=== PATIENT | male | born 1960 | race Caucasian/White ===

== ENCOUNTER 2024-02-09 06:21 | Observation (INO) ==
--- NOTE | 2024-01-03 12:21 | PAT Medication Instructions ---
Medication Instructions Date of Service January 03, 2024 Home Medications ibuprofen 200 mg tablet 200 mg PO Q6H PRN ASK your surgeon for instructions ibuprofen 200 mg tablet 200 mg PO Q6H PRN Other Notes NOTHING TO EAT OR DRINK AFTER MIDNIGHT. If you have any questions please call us at [phone] or [phone] or [phone] or [phone]
--- NOTE | 2024-01-14 11:44 | Anesthesiology Consultation ---
Date of Service January 14, 2024 Assessment & Plan (1) Encounter for pre-operative examination: Chart Review Chart Review: Acceptable Risk for Surgery (pending Factor V level results and PCP clearance 01/21/24) and Patient seen in Pre Admission Testing - Awaiting Factor V level (due to FH of blood clots) - Awaiting PCP clearance 01/21/24 (Dr. Boyer- [facility]) Patient prefers to sit up post op- does not like to lay flat on back when waking up - Patient is NOT an ideal OPJ candidate (currently 23 hour obs) Per [facility] appt on 01/14/24, no recent illness/disease exposures, illness related symptoms, or recent illness/disease positive tests. Will leave to surgeon's discretion if preop Covid testing needed Teaching & Discussion Pre-Anesthesia Teaching/Discussion Notes: Instructed NPO after midnight before surgery,except medications with 15 cc of water. Medication instructions provided according to the [facility] guidelines. History Surgery Operation Date: 02/09/24 07:00 Proposed Procedures p Right Total Hip Arthroplasty - Sammy Lara MD Height/Weight Height: 6 ft Weight: 147.418 kg Allergies Allergy/AdvReac Type Severity Reaction Status Date / Time No Known Allergies Allergy Verified 12/30/23 11:52 Medications Home Medications Medication Instructions Recorded Confirmed Last Taken ibuprofen 200 mg tablet 200 mg PO Q6H PRN Pain 12/30/23 12/30/23 Unknown Past Medical History Medical History (Updated 01/17/24 @ 09:17 by Vangie Chambers PA-C) Family history of blood clots No personal history of blood clots Surgeon ordered Factor V testing as part of preop testing at [facility] appt 01/14/24 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 emergency room. resolved. History of hypertension (2018) diet controlled hx of taking blood pressure medication for about 5 months, no longer needed. History of kidney stones no surgical intervention - "passed on own" no recent issues Exercise / Class Metabolic Activity III < 4 Walking/Shop/Light housework (no chest pain or SOB with flat surface, short distance ambulation- uses cane for longer distance ambulation ) Past Family History Family History Other No family history of adverse response to anesthesia Past Surgical History Surgical History History of cholecystectomy History of esophagogastroduodenoscopy (EGD) (1993) Hx of palate surgery (2011) removal of hard palate cancer removal Status post gastric banding (1993) Past Anesthesia History No Hx of Anesthesia Complications and No Family Hx of Anesthesia Complications History of PONV No Hx of PONV and No Hx of Motion Sickness Social History Smoking Status: Never smoker Do You Dip or Chew Tobacco: No Hx Alcohol Use: No Hx Substance Use: No substance use type: does not use Review of Systems - Unknown snoring history per patient Patient denies chest pain, shortness of breath, dyspnea on exertion, reflux, cough, wheezing, palpitations. No hx of seizures, stroke, [place]. No hx of blood clots or blood transfusions Physical Exam Vital Signs VITALS BP 144/83 P 64 TEMP 98.2 SP02 97% RESP 16 Constitutional no acute distress ENMT Mouth: no TMJ clicking Thyromental Distance: > or= 3.5 Finger Breadths (3.5) Mallampati Class: I Molars missing Neck + limited neck extension (mild) Respiratory normal respiratory effort; no respiratory distress Auscultation: lungs clear to auscultation bilaterally; no wheezes Cardiovascular Rate/Rhythm: regular rate and regular rhythm Heart Sounds: no murmur Vessels: no carotid bruit Musculoskeletal Spine: no pain with cervical ROM Extremities: extremities normal to inspection Psychiatric Orientation: alert Lab Results Anesthesia Preop Results Results Anesthesia Widget: WBC 4.59 K/ul (4.8-10.8) L 01/14/24 Hgb 14.5 g/dl (14.0-18.0) 01/14/24 Hct 44.5 % (42.0-52.0) 01/14/24 Plt 186 K/uL (130-400) 01/14/24 Na 139 mmol/L (136-145) 01/14/24 K 4.5 mmol/L (3.5-5.1) 01/14/24 Cl 107 mmol/L (98-107) 01/14/24 CO2 26 mmol/L (21-32) 01/14/24 BUN 15 mg/dl (6-23) 01/14/24 Creat 0.75 mg/dl (0.6-1.4) 01/14/24 Glucose Level 104 mg/dl (70-99(Fasting)) H 01/14/24 PT 10.9 Seconds (9.0-12.0) 01/14/24 PTT 28 Seconds (21-31) 01/14/24 INR 1.0 (0.9-1.1) 01/14/24 Urine Color Dark Yellow 01/14/24 Urine Appearance Clear (Clear) 01/14/24 Urine pH 5.5 (4.5-7.5) 01/14/24 Urine Specific [place] 1.022 (1.000-1.030) 01/14/24 Urine Protein Negative (Negative) 01/14/24 Urine Glucose (UA) Negative (Negative) 01/14/24 Urine Ketones Trace (Negative) H 01/14/24 Urine Blood Negative (Negative) 01/14/24 Urine Nitrite Negative (Negative) 01/14/24 Urine Bilirubin Negative (Negative) 01/14/24 Urine Urobilinogen Negative (Negative) 01/14/24 Urine Leukocyte Esterase Negative (Negative) 01/14/24 Blood Type A Positive 01/14/24 Antibody Screen NEGATIVE 01/14/24 Testing Electrocardiogram Date: 01/14/24 SB at 58bpm Left axis deviation RBBB Chest X-Ray Date: 01/14/24 Findings: + NAD Echocardiogram Date: 11/22/23 EF: 60% LV Function: normal Other Findings: + diastolic dysfunction Valvular Disease: + no significant valvular disease
[2024-02-09] MEDS ORDERED: BUPIVACAINE 0.5 % 5 MG/1 ML PF 10ML VIAL ONE (06:23)
--- NOTE | 2024-02-09 06:25 | History & Physical Bridge Note ---
Date of Service February 09, 2024 History & Physical Bridge Note I have examined the patient, reviewed the History & Physical and in the interval since the performance of the History & Physical I have noted the following changes of clinical significance:consent and site verified. no changes noted
[2024-02-09] MEDS: LR 500ML BOLUS, THEN 15ML/HR IV SCH (07:08)
[2024-02-09] MEDS: LR 60ML/HR IV SCH (07:08)
[2024-02-09] MEDS ORDERED: ONDANSETRON INJ 2 MG/ML 2 ML VIAL ONE (07:14)
[2024-02-09] MEDS ORDERED: LIDOCAINE 2% 2 ML VIAL/AMP(20MG/ML) INFIL ONE (07:14)
[2024-02-09] MEDS ORDERED: MIDAZOLAM HCL 1 MG/ML 2ML VIAL ONE ×2 (07:14→08:59)
[2024-02-09] MEDS ORDERED: PROPOFOL IV EMULSION 10 MG/ML 20 ML VIAL IV ONE ×2 (07:14→07:15)
[2024-02-09] MEDS ORDERED: DEXAMETHASONE SOD INJ 4 MG/ML VIAL ONE (07:14)
[2024-02-09] MEDS ORDERED: fentaNYL citrate PF 100 MCG/2 ML VIAL ONE ×2 (07:15→09:43)
[2024-02-09] MEDS ORDERED: ATROPINE SULFATE 0.1 MG/ML 10ML SYR IV PRN (07:55)
[2024-02-09] MEDS ORDERED: ePHEDrine sulfate 50 MG/ML AMP IV PRN (07:55)
[2024-02-09] MEDS ORDERED: ONDANSETRON INJ 2 MG/ML 2 ML VIAL IV PRN ×2 (07:55→12:10)
[2024-02-09] MEDS ORDERED: fentaNYL citrate PF 100 MCG/2 ML VIAL IV PRN (07:55)
[2024-02-09] MEDS: NYSTATIN POWDER 15GM BTL EXT STA (08:08)
[2024-02-09] MEDS: TRANEXAMIC ACID 1,000 MG **IV Pre-op IV SCH (08:33)
[2024-02-09] MEDS: ceFAZolin 3000MG 3,000 MG/72.5 ML BAG IV SCH (08:58)
[2024-02-09] MEDS ORDERED: KETAMINE HCL 10MG/ML SYR ONE (09:12)
[2024-02-09] MEDS: ORTHO JOINT ANESTHETIC ONE (09:38)
--- OUTSIDE RECORDS SUMMARY | 2024-02-09 10:02 | External Medical Summary | Continuity of Care Document ---
Author Name Unknown Organization [facility] [address] [id number] Address [address] [place] [id number] Care Team Providers Care Job Printer Name Role Phone Ramirez Boyerren Raoul Primary Care Physician [phone] Encounter [facility] [id number] Date(s): 01/14/24 - 01/14/24 [facility] [address] [id number] [facility] Medicine [address] [place] [id number] Encounter Diagnosis Degenerative joint disease of right hip(Discharge Diagnosis) - 01/14/24 Discharge Disposition: Home or Self Care Attending Physician: TAMRA Duran, Yoel Jefferson Referring Physician: MD Marco, Sammy Arguello Allergies, Adverse Reactions, Alerts No Known Allergies Medications No Known Medications Mental Status 01/14/24 Barriers to Learning one year None evide nt Mandatory Health Literacy Documentation Yes Health Literacy Communication Barriers N ever Primary Language Sinhala Problem List Condition Confirmation Course Effective Dates Status H ealth Status Informant 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 Confirmed Active Diagnosis Diagnosis Type Effective Dates Health Status Clinical Service Informant Degenerative joint disease of right hip Discharge Diagnosis 01/14/24 Vital Signs Most recent to oldest [Reference Range]: 1 Height 179 cm (01/14/24 10:07 AM) Patient Weight 145 kg (01/14/24 10:07 AM) Body Mass Index 45.25 kg/m2 (01/14/24 10:07 AM) Temperature [36.5-37.9 DegC] 36.2 DegC *LOW* (01/14/24 10:07 AM) Heart Rate 68 bpm (01/14/24 10:07 AM) Blood Pressure 150/80mmHg (01/14/24 10:07 AM) Cuff Pulse Pressure 70 mmHg (01/14/24 10:07 AM) Social History Social History Type Response Smoking Status Never smoked cigaret maribel Sex Male Patient Care team information Care Team Personnel Name: MD Boyer Darren M Position: Referring Member Role: Primary Care Provider Address: Address: [address] [place] [id number]
[2024-02-09] MEDS: TRANEXAMIC ACID 1,000 MG **IV Intra-op IV SCH (10:15)
[2024-02-09] MEDS: ROPIVACAINE 0.5% HCL/PF 246 MG, Ketorolac (*for OR use only*) 30 MG, EPINEPHrine 30MG/3... INFIL SCH (10:25)
--- NOTE | 2024-02-09 10:33 | Post Operative Brief Note ---
Immediate Post Op Note Date of Surgery February 09, 2024 Pre & Post Diagnosis Operation Date: 02/09/24 08:50 Pre-Op Diagnosis: Right Hip Osteoarthritis Post-Op Diagnosis: Right Hip Osteoarthritis I identified the patient and participated in the time-out.: Yes Procedure Operation Date: 02/09/24 08:50 Actual Procedures p Right Total Hip Arthroplasty(Right) - Sammy Lara MD Surgeon Sammy Lara MD Starch Crab ROSARIO/subjective Estimated Blood Loss 200 Findings Consistent with Post-Op Diagnosis Severe osteoarthritis with acetabular overhang marked femoral head deformity Fluids See anesthesia report Complications None
--- NOTE | 2024-02-09 10:37 | Operative Report ---
Post Operative Report Pre & Post Diagnosis Operation Date: 02/09/24 08:50 Pre-Op Diagnosis: Right Hip Osteoarthritis Post-Op Diagnosis: Right Hip Osteoarthritis I identified the patient and participated in the time-out.: Yes Procedure Operation Date: 02/09/24 08:50 Actual Procedures p Right Total Hip Arthroplasty(Right) - Sammy Lara MD Surgeon Sammy Lara MD Logistics Manager ROSARIO/subjective Estimated Blood Loss 200 Findings Consistent with Post-Op Diagnosis Severe osteoarthritis with marked acetabular osteophytes femoral neck deformity with osteophytes Fluids See anesthesia Specimens Bone pathology Drains None Complications None Indications Severe pain end-stage disease by x-ray and physical exam high BMI Description of Procedure After the patient was appropriate notified site verified consent verified antibiotics confirmed as being given the patient was placed in the left lateral decubitus position with extra padding. Right lower extremity was then prepped and draped use routine fashion. An appropriate exposure was made based on the size. Appropriate retraction placed. Care taken to protect the sciatic nerve. The hip was quite stiff. Required a lot of exposure. Care was taken not to put any retractors on the sciatic nerve and to knowledge none was. Once the short external rotators were identified they were released and used to protect the sciatic nerve the capsule was then teed. There were huge osteophytes at the posterior acetabulum which were excised. The hip was then dislocated and the femoral neck resected leaving about a centimeter from the lesser tuberosity. As Exposure was then obtained it was large fragments in the joint these were removed. Serial reaming was carried up to a size 56 and 56 acetabular shell sector cup impacted into position with excellent purchase and secured with additional 6.5 x 25 screw with excellent purchase. The dome cart was then placed and then the [place] dual mobility 56/49 liner was seated. Marked osteophytes need to be removed in order to do this. Once this was done the femur was flexed and internally rotated in the proximal femur. With a box loader canal finder lateralizing rasp and serial broaching up to a size 7 reduction with the +5 was slightly short A5 was better. All trial implants were then removed and the permanent stem's contacted and position the femoral head and liner impacted. The hip was stable in all planes and the leg lengths were excellent. The wound was then copiously irrigated the remnants of the capsule were closed as best as possible they were quite contracted and deformed from all the osteophytes the short external rotators were then repaired back to the tuberosity #2 Vicryl was used for this . The deep fascia was then closed with a #2 Vicryl the deep fat with #2 Vicryl the superficial subcutaneous tissue with 2-0 Vicryl skin sindi and retention sutures with 0 Prolene. Wound was then appropriately dressed the patient transferred recovery in satisfactory He tolerated the procedure well. Of note this case was difficult based on overall patient's size and high BMI. This required multiple assistance. Modifier should be used for this. Summary of implants size 56 cup acetabular shell sector DePuy size 25 x 6.5 screw DePuy dome cover DePuy 56/49 double bili liner DePuy 7 standard collared stem Actis DePuy. 49/28 bipolar head DePuy and 28+8.5 ceramic head DePuy. EBL was 200 cc or less crystalloid per anesthesia pathology pending on bone x-rays pending. Family contacted. I attest to the content of the Intraoperative Record and any orders documented therein. Any exceptions are noted below.
--- NOTE | 2024-02-09 10:41 | Orthopedic Progress Note ---
Date of Service February 09, 2024 Orthopedic Progress Note Postop patient tolerated total replacement well. He is awake. He answers questions properly. Spinal is in place cannot move any extremities yet. Denies any chest pain shortness of breath fever chills nausea vomiting headache. Vital signs are stable. He is afebrile. Wound dressing clean dry and intact. Leg lengths are relatively equal. X-ray pending. Family contacted.
--- NOTE | 2024-02-09 10:42 | Discharge Summary ---
Date of Service February 10, 2024 Admission HPI Per Admitting Provider Severe osteoarthritis right and left hip right more severe Principal Diagnosis Severe osteoarthritis right hip with deformity Discharge Data Allergies Allergy/AdvReac Type Severity Reaction Status Date / Time No Known Allergies Allergy Verified 02/09/24 06:50 Vaccinations None Consultations None Procedures Performed Operation Date: 02/09/24 08:50 Actual Procedures p Right Total Hip Arthroplasty(Right) - Sammy Lara MD Ordered Studies X-ray bone pathology Hospital Course (1) Status post hip replacement: Care management plan for total hip replacement high BMI Total Time Total Time Spent Total Time Spent (In Minutes): 5 Discharge Plan Discharge Items Reason For Visit: Right Hip Osteoarthritis Discharge Diagnosis: Same Condition on Discharge: Good Activity: Per Instructions section Lifting: Wait until after follow-up appointment Bathing: Keep incision dry Sexual Activity: Wait until after follow-up appointment Exercise/Sports: Wait until after follow-up appointment Weightbearing Comment: As tolerated with walker or crutches Call non-emergency contact if: your temperature is above 101.5, your wound has increased redness, your wound has increased drainage and your wound pain has increased Follow-up/Referrals: Chidi Boyer MD [Primary Care Provider] - Add Attending Provider Instructions: DIET: * Resume previous diet. MEDICATIONS: * Please take your prescriptions as instructed at your pre-op appointment and/or see medication discharge instructions listed above. * If concerns develop, call your physician's office at . SPECIAL CARE INSTRUCTIONS: * Ice/Elevate as instructed. * Keep dressing clean, dry, intact. * Your surgical extremity may be discolored due to prepping agents used on the skin. A bluish-green tint is a normal variant and should not cause alarm. Call your doctor at [phone] if: * Temperature above 101 degrees * Pain not relieved by pain medicine ordered * There is increased drainage or redness from any incision * You have any unanswered questions, problems or concerns. FOLLOW UP VISIT: * If not already scheduled, please call the office at to schedule a follow-up appointment. Pending Studies at Discharge: Yes (Lung pathology) Stand-Alone Forms: My [facility] Medications and DC Order Prescriptions: No Action ibuprofen 200 mg Tablet 200 mg PO Q6H PRN (Reason: Pain) Admission Data Admit Date/Time: 02/09/24 10:48 Attending Provider: Sammy Lara Admit Provider: Sammy Lraa Primary Care Provider: Chidi Boyer Other Providers: [facility]
--- NOTE | 2024-02-09 10:44 | Operative Report ---
Post Operative Report Pre & Post Diagnosis Operation Date: 02/09/24 08:50 Pre-Op Diagnosis: Right Hip Osteoarthritis Post-Op Diagnosis: Right Hip Osteoarthritis I identified the patient and participated in the time-out.: Yes Procedure Operation Date: 02/09/24 08:50 Actual Procedures p Right Total Hip Arthroplasty(Right) - Sammy Lara MD Surgeon CONNOR Lara MD Supervisor Shipping Room ROSARIO/Renee PAC Estimated Blood Loss 200 Findings Consistent with Post-Op Diagnosis see operative report Specimens see operative report Drains none Complications none Disposition Accompanied Patient To Recovery: Yes Indications This 64 year old male presented to the office with complaints of persisting right hip pain. He had tried conservative care measures without improvement. He elected to proceed with surgical intervention after being educated about potential risks and outcomes. Preoperative imaging was obtained. Description of Procedure The patient was administered a spinal anesthetic and then taken to the operating room where he was given sedation. He was prepped and draped in the usual sterile fashion. Please see Dr. Lara's operative report for specifics of the procedure. I was present for the entire case from initial patient positioning through final wound closure. Assistance was provided in tissue retraction, hemostasis, trial implant placement, final implant placement, and final wound closure. The patient was taken to the recovery room in satisfactory condition. I attest to the content of the Intraoperative Record and any orders documented therein. Any exceptions are noted below.
--- NOTE | 2024-02-09 10:51 | Operative Report ---
Post Operative Report Pre & Post Diagnosis Operation Date: 02/09/24 08:50 Pre-Op Diagnosis: Right Hip Osteoarthritis Post-Op Diagnosis: Right Hip Osteoarthritis I identified the patient and participated in the time-out.: Yes Procedure Operation Date: 02/09/24 08:50 Actual Procedures p Right Total Hip Arthroplasty(Right) - Sammy Lara MD Surgeon Sammy Lara MD Cloth Examiner Hand ROSARIO/Renee PAC Estimated Blood Loss 200 Findings Consistent with Post-Op Diagnosis Same as postoperative diagnosis. Specimens The resected femoral head and portions of the femoral neck. Description of Procedure Please see detailed operative note. I attest to the content of the Intraoperative Record and any orders documented therein. Any exceptions are noted below.
--- NOTE | 2024-02-09 12:01 | Anesthesiology Progress Note ---
Date of Service February 09, 2024 Anesthesia Post Procedure Vital Signs Vital Signs: Temp Pulse Pulse Resp BP Pulse Ox O2 Del Method 02/09/24 11:53 98.1 F 52 L 18 156/76 H 100 Room Air 02/09/24 11:30 98.1 F 56 L 12 161/84 H 99 Room Air 02/09/24 11:20 52 L 18 147/78 H 100 Room Air 02/09/24 11:10 56 L 16 163/78 H 99 Room Air 02/09/24 11:00 55 L 20 150/93 H 99 Room Air 02/09/24 10:50 60 18 100 Oxymask 02/09/24 10:42 97.5 F L 60 16 163/71 H 100 Oxymask 02/09/24 06:56 98.6 F 69 20 161/80 H 96 Room Air O2 Flow Rate 02/09/24 11:53 02/09/24 11:30 02/09/24 11:20 02/09/24 11:10 02/09/24 11:00 02/09/24 10:50 6 02/09/24 10:42 6 02/09/24 06:56 Transfer of Care Handoff Completed per policy Notes Mental Status: alert / awake / arousable and participated in evaluation Patient Amnestic to Procedure: Yes Nausea / Vomiting: adequately controlled Pain: adequately controlled Airway Patency, RR, SpO2: stable & adequate BP & HR: stable & adequate Hydration State: stable & adequate Neuraxial Anesthesia: was administered and sensory block is resolving Anesthetic Complications: no major complications apparent and Pt Satisfied with anesthetic care
[2024-02-09] MEDS ORDERED: diphenhydrAMINE 50 MG/ML VIAL IV PRN (12:10)
[2024-02-09] MEDS ORDERED: ALUMINUM/MAGNESIUM SUSP 30 ML UDC PO PRN (12:10)
[2024-02-09] MEDS ORDERED: oxyCODONE HCL IR 5 MG TAB (IMMEDIATE RELEASE) PO PRN (12:10)
[2024-02-09] MEDS ORDERED: MAGNESIUM HYDROXIDE SUSP 30 ML UDC PO PRN (12:10)
[2024-02-09] MEDS ORDERED: TAMSULOSIN HCL 0.4 MG CAP PO PRN (12:10)
[2024-02-09] MEDS ORDERED: METOCLOPRAMIDE HCL INJ 5 MG/ML 2 ML VIAL IV PRN (12:10)
[2024-02-09] MEDS ORDERED: VANCOMYCIN CONSULT ACTIVE PRN (12:10)
[2024-02-09] MEDS ORDERED: NALOXONE HCL 0.4 MG/1 ML VIAL/CARP IV PRN (12:10)
[2024-02-09] MEDS ORDERED: HYDROmorphone INJ 0.5 MG/0.5 ML SYR IV PRN (12:10)
[2024-02-09] MEDS ORDERED: bisacodyL 10 MG SUPP PR PRN (12:10)
[2024-02-09] MEDS: NEOMYCIN/POLYMYX/BACITR OINT 15 GM TUBE ONE (12:12)
[2024-02-09] MEDS: SODIUM CHLORIDE 0.9% 1,000 ML IV SCH (12:16)
--- NOTE | 2024-02-09 12:26 | XRay Report ---
XR pelvis 1-2V routine CLINICAL HISTORY: Status post right hip arthroplasty. COMPARISON: Right hip CT September 28, 2023. Right hip radiographs August 30, 2023. FINDINGS: Alignment of the total right hip arthroplasty is anatomic. There is no periprosthetic frac ture or unexpected radiopaque foreign body. There are skin sindi. IMPRESSION: Expected findings following total right hip arthroplasty. ACT 112: Negative or not required by law. Electronically signed by: Armand Virgen M.D. 02/09/2024 12:25 PM
[2024-02-09] MEDS: KETOROLAC 30 MG/ML VIAL IV SCH (12:37)
[2024-02-09] MEDS: ACETAMINOPHEN 500 MG TAB PO SCH (14:02)
--- NOTE | 2024-02-09 14:19 | Orthopedic Progress Note ---
Date of Service February 09, 2024 Assessment & Plan Admission and Anticipated Discharge Date Admission Date: February 09, 2024 Orthopedic Progress Note Patient resting comfortably in bed. Denies chest pain shortness of breath fever chills nausea vomiting or headache. Vital signs are stable he is afebrile. Neurovascular check reveals a spinal be wearing off. Has active toe and ankle plantarflexion and dorsiflexion. Still has some tingling in his feet. Not able to get up at this point. Wound dressing clean dry and intact. Assessment postop total hip replacement several hours ago doing well continue with care pathway get him out of bed as soon as it is spinal wears off completely. He is eating and drinking well so we will saline lock his IV.
[2024-02-09] MEDS: FERROUS GLUCONATE 324 MG TAB PO SCH (17:06)
[2024-02-09] MEDS: ASCORBIC ACID 500 MG TAB PO SCH (17:06)
[2024-02-09] MEDS: ceFAZolin 2000MG 2,000 MG/15 ML SYR IV SCH (17:38)
[2024-02-09] MEDS: VANCOMYCIN HCL 2,000 MG in SODIUM CHLORIDE 0.9% 500 ML IV ONE (17:52)
[2024-02-09] MEDS: DOCUSATE SODIUM 100 MG CAP PO SCH (20:47)
[2024-02-09] MEDS: SENNA 8.6 MG TAB PO SCH (20:48)
--- NOTE | 2024-02-10 06:33 | Orthopedic Progress Note ---
Date of Service February 10, 2024 Assessment & Plan Admission and Anticipated Discharge Date Admission Date: February 09, 2024 Orthopedic Progress Note Postop day #1 status post right total replacement. Patient is doing well denies chest pain shortness of breath fever chills nausea vomiting headache. Vital signs are stable he is afebrile. Neurovascular check femoral sciatic nerve is good. Wound dressing clean dry and intact. Assessment overall doing well a.m. labs pending. Plan is for discharge with services. He is being evaluated for potential other types of facilities. This will be limited by insurance. Weight finalize plan for case management. Start Eliquis today. Dressing changed by PA later today
[2024-02-10 07:57] LABS: Basophils # (auto) 0.02 K/uL (0.00-0.20); Basophils % (auto) 0.3 %; Eosinophils # (auto) 0.07 K/uL (0.00-0.50); Hematocrit (blood only) 44.2 % (42.0-52.0); Hemoglobin 14.4 g/dl (14.0-18.0); Immature Granulocytes # (auto) 0.03 K/uL (0.01-0.20); Immature Granulocytes % (auto) 0.4 %; Lymphocytes # (auto) 0.57 K/uL (1.20-3.40); Lymphocytes % (auto) 8.2 %; Mean Corpuscular Hemoglobin 29.6 pg (25.0-34.0); Mean Corpuscular Hgb Conc 32.6 g/dL (32.0-36.0); Mean Corpuscular Volume 90.8 fL (80.0-100.0); Monocytes # (auto) 0.61 K/uL (0.11-0.59); Monocytes % (auto) 8.7 %; Neutrophils # (auto) 5.69 K/uL (1.40-6.50); Neutrophils % (auto) 81.4 %; Platelet Count 144 K/uL (130-400); RDW Coefficient of Variation 14.2 % (11.5-14.5); RDW Standard Deviation 47.5 fL (36.4-46.3); Red Blood Count 4.87 M/uL (4.70-6.10); White Blood Count 6.99 K/ul (4.8-10.8)
[2024-02-10] MEDS: dexAMETHasone 10 MG in SYRINGE 0 ML IV SCH (08:25)
[2024-02-10] MEDS: MULTIVITAMIN TAB PO SCH (08:31)
[2024-02-10 08:33] LABS: BUN Creatinine Ratio 28.6 (10-20); Calcium 8.2 mg/dl (8.6-10.3); Creatinine Clr Calc Pharmacy 155.5 ml/min; Est GFR (African American) 115.6 ml/min; Est GFR (Non-African American) 99.7 ml/min
--- NOTE | 2024-02-10 09:11 | Orthopedic Progress Note ---
Date of Service February 10, 2024 Assessment & Plan (1) Status post hip replacement: Plan: The patient was educated regarding today's findings. Conservative care measures were discussed. A new pressure dressing was applied by me, using gauze, ABDs, and Medipore tape. He should keep this in place through the weekend. I will see him in the office on Wednesday at 11 AM for dressing change and wound evaluation. Written discharge instructions were provided. His Eliquis was started this morning. Continue twice daily for 4 weeks to prevent clots. Continue using his walker for ambulation. Ice the hip frequently to reduce pain and swelling. Awaiting insurance authorization for transfer to [facility] for rehab. Admission and Anticipated Discharge Date Admission Date: February 09, 2024 Subjective This 64-year-old male is seen today in his room. He is 1 day status post right total hip arthroplasty. The patient states he did fine overnight. He was able to ambulate to the bathroom. He is currently eating breakfast. He denies any chest pain, shortness of breath, nausea, vomiting, or abdominal pain. He does have some hip pain but states it is tolerable. He is hoping to be discharged to [facility] today. He states he has no one available to stay with him and his plans for returning home fell through with relatives. Review of Systems Review of Systems: Unchanged from yesterday. Physical Exam Physical Exam: General: Well-developed, well-nourished, large middle-aged male, in no acute distress. Sitting in bed. Alert and oriented. Skin: Warm and dry with good turgor. No rashes. He has venous stasis changes on his lower extremities. He has a postsurgical dressing in place on the right hip. Upon removal, there is a moderate amount of bloody drainage on the inner dressings. No bleeding through the outer dressings. His surgical wound is well-approximated. [place] and retention sutures are in place. He has some minor active bleeding present from the most distal retention suture site. No bleeding from the incision itself. Expected postoperative ecchymosis and edema has developed. Musculoskeletal: The patient has intact motor function of his right leg. He is able to perform heel slides and has intact plantarflexion and dorsiflexion of his ankle. He is able to move himself to the edge of the bed and stand using his walker, without any additional assistance. Neurologic: Gross sensation is intact across the right leg by soft touch. Peripheral pulses are 2+. Results & Data Vital Signs (Past 12 Hours) Vital Signs Temp Pulse Resp BP BP Pulse Ox O2 Del Method 02/10/24 07:06 36.8 C 85 16 128/77 93 Room Air 02/10/24 04:03 36.8 C 87 20 136/84 98 Room Air 02/09/24 23:00 36.7 C 64 20 115/70 97 Room Air 02/09/24 21:25 Room Air Laboratory Results BC obtained this morning shows a white count of 6.99. H&H of 14.4 and 44.2. Platelets 144,000. Renal profile obtained this morning shows sodium 138, potassium 4.0, CO2 to 24. BUN of 20 with creatinine 0.70. Glucose this morning was 113.
[2024-02-10] MEDS: APIXABAN 2.5 MG TAB PO SCH (09:38)
== END 2024-02-10 13:30 ==
LOC: ASU 06:21 → 3E 06:21

== ENCOUNTER 2024-11-15 06:34 | Observation (INO) ==
--- NOTE | 2024-11-03 16:08 | Anesthesiology Consultation ---
Date of Service November 03, 2024 Assessment & Plan (1) Encounter for pre-operative examination: - Case discussed in detail with Dr. Jeffrey who advised nothing additional is needed and patient can proceed. - Outpatient joint assessment: Patient is currently scheduled for inpatient pathway. If re-evaluated and patient/surgeon requests outpatient pathway, patient is not advised candidate for outpatient joint program from anesthesia standpoint. Chart Review Chart Review: Acceptable Risk for Surgery and Patient NOT seen in Pre Admission Testing History Surgery Operation Date: 11/15/24 07:00 Proposed Procedures p Left Total Hip Arthroplasty - Sammy Lara MD Height/Weight Height: 6 ft 1 in Weight: 140.614 kg Allergies Allergy/AdvReac Type Severity Reaction Status Date / Time No Known Allergies Allergy Verified 11/03/24 15:37 Medications Home Medications Medication Instructions Recorded Confirmed Last Taken ibuprofen 200 mg tablet 200 mg PO Q6H PRN Pain 12/30/23 11/03/24 02/02/24 Past Medical History Medical History (Updated 11/03/24 @ 16:03 by Linda Carrera PA-C) Bifascicular block Family history of blood clots No personal history of blood clots Surgeon ordered Factor V testing as part of preop testing at [facility] appt 01/14/24-negative per [facility] note History of cancer of hard palate (2011) surgical intervention only- no chemo or XRT did wear retainer after surgery but opening has since closed no issues since 2011 History of COVID-19 07/2020 -> moderate flu symptoms, Spo2 low, fatigue, treated outpatient at [facility] emergency room. resolved. History of hypertension (2018) diet controlled hx of taking blood pressure medication for about 5 months, no longer needed. History of kidney stones no surgical intervention - "passed on own" no recent issues Past Family History Family History Other No family history of adverse response to anesthesia Past Surgical History Surgical History (Updated 11/03/24 @ 16:00 by Linda Carrera PA-C) History of cholecystectomy History of esophagogastroduodenoscopy (EGD) (1993) History of total right hip arthroplasty (01/2024) SAB L3-L4 3 attempts. Hx of palate surgery (2011) removal of hard palate cancer removal Status post gastric banding (1993) Social History Smoking Status: Never smoker Do You Dip or Chew Tobacco: No Hx Alcohol Use: No Hx Substance Use: No substance use type: does not use Lab Results Anesthesia Preop Results Results Anesthesia Widget: WBC 5.66 K/ul (4.8-10.8) 10/19/24 Hgb 15.6 g/dl (14.0-18.0) 10/19/24 Hct 47.3 % (42.0-52.0) 10/19/24 Plt 200 K/uL (130-400) 10/19/24 Na 140 mmol/L (136-145) 10/19/24 K 4.1 mmol/L (3.5-5.1) 10/19/24 Cl 106 mmol/L (98-107) 10/19/24 CO2 31 mmol/L (21-32) 10/19/24 BUN 13 mg/dl (6-23) 10/19/24 Creat 0.76 mg/dl (0.6-1.4) 10/19/24 Glucose Level 100 mg/dl (70-99(Fasting)) H 10/19/24 PT 10.7 Seconds (9.0-12.0) 10/19/24 PTT 29 Seconds (21-31) 10/19/24 INR 1.0 (0.9-1.1) 10/19/24 Blood Type A Positive 10/19/24 Antibody Screen NEGATIVE 10/19/24 Testing Electrocardiogram Date: 10/19/24 Sinus rhythm with 1st degree AV block, rate 75 bpm RBBB Left anterior fascicular block bifascicular block "No significant change vs 01/14/24 EKG" Chest X-Ray Date: 10/19/24 1. No active cardiopulmonary disease. No other abnormalities noted. 2. Mild degenerative changes in the thoracic spine. Echocardiogram Date: 11/22/23 EF 60% No significant valvular pathology
--- NOTE | 2024-11-15 05:16 | History & Physical Bridge Note ---
Date of Service November 15, 2024 History & Physical Bridge Note I have examined the patient, reviewed the History & Physical and in the interval since the performance of the History & Physical I have noted the following changes of clinical significance:consent and site verified. no changes noted
[2024-11-15] MEDS: LR 500ML BOLUS, THEN 15ML/HR IV SCH (07:10)
[2024-11-15] MEDS: LR 60ML/HR IV SCH (07:11)
[2024-11-15] MEDS ORDERED: BUPIVACAINE 0.5 % 5 MG/1 ML PF 10ML VIAL ONE (07:22)
[2024-11-15] MEDS ORDERED: PROPOFOL IV EMULSION 10 MG/ML 20 ML VIAL IV ONE ×3 (07:43→10:36)
[2024-11-15] MEDS ORDERED: fentaNYL citrate PF 100 MCG/2 ML VIAL ONE (07:44)
[2024-11-15] MEDS ORDERED: KETAMINE HCL 10MG/ML SYR ONE (07:44)
[2024-11-15] MEDS ORDERED: MIDAZOLAM HCL 1 MG/ML 2ML VIAL ONE (07:44)
[2024-11-15] MEDS: TRANEXAMIC ACID 1,000 MG **IV Pre-op IV SCH (08:46)
[2024-11-15] MEDS: ceFAZolin 3000MG 3,000 MG/72.5 ML BAG IV SCH (08:59)
--- OUTSIDE RECORDS SUMMARY | 2024-11-15 09:26 | External Medical Summary | Continuity of Care Document ---
Author Name Unknown Organization [id number] Address [address] [place] [id number] Care Team Providers Care Slip Laster Name Role Phone Chidi Boyer Primary Care Physician [phone] Encounter [facility] [id number] Date(s): 10/19/24 - 10/19/24 [facility] [address] [place] [id number] [facility] [address] [place] [id number] Encounter Diagnosis Degenerative joint disease of left hip(Discharge Diagnosis) - 10/19/24 Discharge Disposition: Home or Self Care Attending Physician: TAMRA Duran, Yoel Jefferson Referring Physician: MD Marco, Sammy Arguello Encounter Type: Clinic Allergies, Adverse Reactions, Alerts No Known Allergies Medications A+D topical ointment Start: 02/28/24 3:10:00 PM EDT, 1 appl, topical, qid, Disp# 120 g, Pharmacy: [id number] Start Date: 02/28/24 Status: Ordered Quantity: 120.0 Unit: g Repeat number: 1 Indication: Presence of right artificial hip joint Mental Status 10/19/24 Barriers to Learning one year None evide nt Mandatory Health Literacy Documentation Yes Health Literacy Communication Barriers N ever Primary Language Eritrean Problem List Condition Confirmation Course Effective Dates Status H ealth Status Informant 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 Confirmed Active Status post right hip replacement Confirmed Active Diagnosis Diagnosis Type Effective Dates Health Status Clinical Service Informant Degenerative joint disease of left hip Discharge Diagnosis 10/19/24 Procedures Procedure Date Related Diagnosis Body Site Status THR - Total hip replacement 2023 Completed 1right Vital Signs Most recent to oldest [Reference Range]: 1 Height 185.42 cm (10/19/24 2:44 PM) Patient Weight 137.8 kg (10/19/24 2:44 PM) Body Mass Index 40.08 kg/m2 (10/19/24 2:44 PM) Temperature [36.5-37.9 DegC] 36.2 DegC *LOW* (10/19/24 2:44 PM) Respiratory Rate 20 br/min (10/19/24 2:44 PM) Blood Pressure 180/92mmHg (10/19/24 2:53 PM) Social History Social History Type Response Smoking Status Never smoked cigaret maribel Sex Male Sex Representation Male (finding) Pre-OP H & P * TAMRA Duran Cory D: PERFORM, MODIFY, MODIFY, MODIFY, MODIFY, MODIFY Event Display: Pre-OP H & P Authored Date: [id number] PRE-OPERATIVE HISTORY AND PHYSICAL Name: JESSICA ESPARZA Patient Number: [id number] : [id number] Date of Service: 10/19/2024 PRE-OP Diagnosis: Left hip DJD Planned Procedure: Left hip total hip arthroplasty Chief Complaint: Left hip pain and loss of motion History of Present Illness (including history relevant to procedure): This 64-year-old male presents today for his preoperative history and physical. He is scheduled to undergo a left hip total hip arthroplasty on 11/15/[address] Lara. He has had increasing left hip pain over the last few months. Pain is worse with weightbearing. It is affecting his ADLs. He notes loss of motion of the hip. He has a history of right total hip arthroplasty done 8 months ago with good results. He required suppression antibiotics for almost 7 months. He elects to proceed with the same surgery on the left. He denies any numbness or tingling. Preoperative imaging has been obtained. Ambulating today with a rolling walker. Review Of Systems: A total of 10 systems were reviewed and are significant only for below stated conditions. Family history: Significant for factor V deficiency, hypertension, diabetes Social history: No tobacco use, occasional EtOH use. The patient is employed at a [employer] plant. Single. Past Medical History: Problems: Status post right hip replacement 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 Morbid obesity History of kidney stones History of throat cancer Essential hypertension Procedure History Procedure Procedure Date Comments THR - Total hip replacement Cholecystectomy Gastric band surgery Throat and palate cancer excision Tonsillectomy with adenoidectomy January 20241999 - right Allergies and Sensitivities: NKA Current Home Meds: (Last Updated 10/19 14:53) vitamin A & D topical (A+D topical ointment) 1 appl topical qid Vitals: Last Updated 10/19/24 14:53 Weights: Last Updated 10/19/24 14:44 Date Temp Pulse BP RR SpO2 FIO2 Date Wt(kg) Wt(lb) 10/19 14:53 180/92 10/19 14:44 137.8 303 10/19 14:44 36.2 20 97 10/19 14:44 137.8 303 24 Hr Tmax: 36.2 at 10/19 14:44 Initial Wt: 10/19 137.8 kg 303 lb Physical Exam: (relevant to the procedure, including heart and lung evaluation) General: Well-developed, well-nourished, morbidly obese middle-aged male, in no acute distress. Sitting in a chair. Alert and oriented. HEENT: Normocephalic, atraumatic. Eyes PERRLA, EOMI. Nares patent bilaterally without nasal drainage. Oropharynx with moist oral mucosa. Fair dentition. Several teeth are missing. Remaining teeth arein adequate condition. Neck: No JVD. Cardiac: RRR. No MGR. Peripheral pulses are 2+. Lungs: Clear to auscultation bilaterally. No crackles, rhonchi, or wheezing. Good air movement. Abdomen: Morbidly obese. Bowel sounds present x 4. Soft nontender. No organomegaly. No masses. Extremities: Left hip evaluation reveals no obvious asymmetry or deformity. He has focal discomfortwith palpation across the anterior flexion crease. Discomfort wraps in a C-shaped pattern towards his buttock. No pain with palpation of the gluteal muscles or IT band at this time. There is limited hip motion secondary to pain. Hip flexion to 90 degrees, external rotation of only 20 degrees. Internal rotation just shy of neutral. Crepitus is palpable with motion. This is similar to his previous exam. He is able to stand today and ambulates with an antalgic gait using his rolling walker. Neuro: Gross sensation is intact across both lower extremities by soft touch. Skin: Warm and dry with good turgor. No rashes. Venous stasis changes are present peripherally on the legs. No current open wounds. Studies of Lab Results (relevant to the procedure): Radiographic imaging previously obtained shows end-stage DJD of the left hip. Periarticular osteophytes, subchondral sclerosis, and joint space narrowing are all present. ASSESSMENT: Left hip end-stage DJD Plan: The patient was educated regarding today's findings. Conservative care measures were discussed. Approximately 30 minutes was spent reviewing operative procedure, postoperative recovery, physical therapy requirements, and medication use. Postoperative prescriptions for Percocet, Eliquis 2.5 mg, and an oral antibiotic will be sent to his pharmacy upon discharge from the hospital. Anticipate discharge to a rehab facility, as the patient lives alone. He went to [facility] time and would prefer to go there again. Preoperative lab work was ordered today. His EKG and chest x-ray are up-to-date. Medical clearance has been requested from his PCP, and he will be seeing her next week. PDMP was checked and there are no concerning findings. He is currently asymptomatic of any COVID-19 or influenza symptoms. He already has a walker, cane, and raised toilet seat at home. The surgical packet was reviewed and the patient had no further questions. This dictation has been completed using [employer] text voice recognition software. Grammatical errors, omissions, insertions, and misspellings may be present due to the limitations of the software. Electronic Signature on File Electronically Reviewed/Signed by: Yoel Duran PA-C Author Signature Dt/Tm:10/20/2024 04:52 PM Division of Sports Medicine Electronically Reviewed/Signed by: Yoel Duran PA-C Cosigner Signature Dt/Tm: 10/20/2024 05:17PM Division of Sports Medicine Electronically Reviewed/Signed by: Sammy Lara MD Cosigner Signature Dt/Tm: 10/20/2024 05:47 PM Contact [facility] [employer]ocker for Clinical Affairs, [facility] Prabhjot Professor in Orthopaedics Heel Gummer, [facility] Sports Medicine CDS Patient Care team information Care Team Personnel Name: MD Boyer Darren Michael Position: Referring Member Role: Primary Care Provider Address: [facility] [address] [place] [id number] [place] Telecom: [phone] Insurance Providers Guarantor name: Health Plan Information #: 1 Payer: [facility] [employer] Member Number: [id number] Policy Number: KEYA Group Number: [id number] Health [facility] Information #: 2 Payer: [facility] [employer] Member Number: [id number] Policy Number: KEYA Group Number: NA
[2024-11-15] MEDS: ORTHO JOINT ANESTHETIC ONE (09:42)
[2024-11-15] MEDS ORDERED: NALBUPHINE HCL INJ 10 MG/ML AMP IV PRN (09:54)
[2024-11-15] MEDS ORDERED: HYDROmorphone INJ 2 MG/ML SYR/VIAL IV PRN (09:54)
[2024-11-15] MEDS ORDERED: DEXAMETHASONE SOD INJ 4 MG/ML VIAL IV PRN (09:54)
[2024-11-15] MEDS ORDERED: ATROPINE SULFATE 0.1 MG/ML 10ML SYR IV PRN (09:54)
[2024-11-15] MEDS ORDERED: ePHEDrine sulfate 50 MG/ML AMP IV PRN (09:54)
[2024-11-15] MEDS ORDERED: ONDANSETRON INJ 2 MG/ML 2 ML VIAL IV PRN ×2 (09:54→13:00)
[2024-11-15] MEDS ORDERED: GLYCOPYRROLATE 0.2 MG/ML VIAL ONE (09:58)
[2024-11-15] MEDS ORDERED: ePHEDrine sulfate 50 MG/5 ML SYR ONE (10:02)
[2024-11-15] MEDS ORDERED: PHENYLEPHRINE 100MCG/ML 5ML SYR ONE (10:02)
[2024-11-15] MEDS ORDERED: ONDANSETRON INJ 2 MG/ML 2 ML VIAL ONE (10:04)
[2024-11-15] MEDS: TRANEXAMIC ACID 1,000 MG **IV Intra-op IV SCH (10:27)
[2024-11-15] MEDS: ROPIV 0.5% 246mg, Ketorolac 30mg, EPINEPHrine 0.5mg in NSS INFIL SCH (10:27)
--- NOTE | 2024-11-15 11:00 | Post Operative Brief Note ---
Immediate Post Op Note Date of Surgery November 15, 2024 Pre & Post Diagnosis Operation Date: 11/15/24 08:50 <No data on this case meets the specified criteria> Osteoarthritis left hip I identified the patient and participated in the time-out.: Yes Procedure Operation Date: 11/15/24 08:50 <No data on this case meets the specified criteria> Noncemented left total replacement Surgeon Sammy Lara MD Air Conditioning Technician Adam/Renee Estimated Blood Loss 150 Findings Consistent with Post-Op Diagnosis Severe disease more capsular contracture marked stiffness of the hip cannot flex more than 50 degrees could not extend more than -20 Fluids 1200 cc crystalloid Complications None
--- NOTE | 2024-11-15 11:08 | Operative Report ---
Post Operative Report Pre & Post Diagnosis Operation Date: 11/15/24 08:50 <No data on this case meets the specified criteria> Osteoarthritis left hip pre and postop diagnosis same status post left total replacement noncemented I identified the patient and participated in the time-out.: Yes Procedure Operation Date: 11/15/24 08:50 <No data on this case meets the specified criteria> Left total placement noncemented Surgeon Sammy Lara MD Justice [employer] Peace [place]olia/Renee Estimated Blood Loss 150 Findings Consistent with Post-Op Diagnosis Severe osteoarthritis marked contracture Fluids 1200 cc Specimens Bone pathology Drains None Complications None Indications Severe pain marked obstruction on x-ray Description of Procedure After the patient was appropriate notified site verified consent verified antibiotics were given he was placed the right lateral decubitus position left lower extremity prepped and draped in his routine fashion. Left hip minimally flexed about 70 degrees under anesthesia and extend about -20 rotation arc was trace. Once he was all prepped and draped the posterior approach the hip was made. Sharp section carried through skin blunt dissection down to the fascia was a quite large individual. This a modifier 22 case. His BMI is 42.1. Generous incision was made appropriately. Fascia open. 2 Charnley retractors were required. Care taken to protect the sciatic nerve. Short external rotators were quite contracted the hip was externally rotated they were released. The capsule was then opened and the hip was able to be dislocated femoral neck resected. 2 acetabular retractors were placed 1 inferiorly 1 superiorly care taken to protect the sciatic nerve. Large osteophytes were removed large loose bodies removed. The hip had grade 4 disease throughout. It was then serially reamed up to a size 56 and a 56 cup impacted into position appropriate anteversion inclination and secured with additional 6.5 x 20 mm screw with excellent purchase. The bipolar dual mobility liner was then seated. It was in excellent position. The hip was then flexed and internally rotated. The proximal hip was then prepared with a press box custodian canal finder lateralizing rasp was serial broaching up to a size 7 the 7 was then impacted into position trial reduction carried out +5 head was excellent leg lengths were excellent sta bility excellent. All trial implants were then removed. It should be mentioned that a whole eliminator was placed prior to putting the dome cover in place. Once everything was irrigated again and soaked in Betadine the permanent stem and head were then seated and then the hip reduced care taken to protect the sciatic nerve. The hip was stable in full range of motion. There was no impingement. She mention osteophytes were removed prior to placing the by mentum Ultrex liner 49/28 bipolar. This allowed it to be seated well and concentrically around the acetabulum. Once all permanent implants were in the position the hip was again reduced everything looked good and then closed. The capsule was just too contracted to prepare as well as the short external rotators. The deep fascia was then closed with multiple #2 Vicryl's watertight closure was obtained. Subcutaneous layer which was quite thick and probably close to follow-up 4-1/2 5 inches thick was closed in multiple layers using #2 Vicryl 2-0 Vicryl. Once that was done the wound was then closed with skin with sindi. Compressive dressing was applied. He will have a wound VAC placed. It was elected not to use retention sutures then based on his reaction to the last time. EBL was roughly 150 cc crystalloid 1200 cc. Summary of implants acetabular shell sector cup 5620 x 6.5 screw dome cover 56 x 49 liner dual mobility 7 stem Actis AC Tis 49/25 bipolar a 28+5 ceramic head. DVT PE prophylaxis to start tomorrow. Weightbearing as tolerated. Use a walker. Brother contacted. I attest to the content of the Intraoperative Record and any orders documented therein. Any exceptions are noted below.
--- NOTE | 2024-11-15 11:12 | Orthopedic Progress Note ---
Date of Service November 15, 2024 Orthopedic Progress Note Tolerated left total replacement well. Denies any chest pain shortness of breath fever chills nausea vomiting headache. Neurovascular check limited by spinal. Postop x-rays pending. Wound dressing clean dry and intact. Family contacted brother. Initiate DVT PE prophylaxis tomorrow obtain x-ray and recovering.
--- NOTE | 2024-11-15 11:14 | Operative Report ---
Post Operative Report Pre & Post Diagnosis Operation Date: 11/15/24 08:50 Pre-Op Diagnosis: Left Hip Osteoarthritis Post-Op Diagnosis: Left Hip Osteoarthritis I identified the patient and participated in the time-out.: Yes Procedure Operation Date: 11/15/24 08:50 Actual Procedures p Left Total Hip Arthroplasty, Uncemented(Left) - Sammy Lara MD Surgeon Sammy Lara MD Small Animal Veterinarian Magnolia/Renee Estimated Blood Loss 150 Findings Consistent with Post-Op Diagnosis Specimens Left femoral head Description of Procedure Patient was brought to the operative suite where he underwent anesthesia. He was placed in the right lateral decubitus position. Left lower extremity was prepped and draped in the usual sterile fashion. Surgical timeout was performed. Patient underwent a left total hip arthroplasty. Please see Dr. Lara's operative report for full details. I was present and assisted with patient positioning, limb positioning, soft tissue retraction, hemostasis, hardware implantation, wound closure, postoperative dressing placement. The patient was awakened and taken to the recovery room in stable condition. I attest to the content of the Intraoperative Record and any orders documented therein. Any exceptions are noted below.
--- NOTE | 2024-11-15 11:14 | Discharge Summary ---
Date of Service November 16, 2024 Admission HPI Per Admitting Provider Left hip pain multiple joint osteoarthritis including knee on that side has marked flexion contracture knee and hip. Admitted for left total replacement. Principal Diagnosis Severe osteoarthritis left hip high BMI modifier 22 Case Discharge Data Allergies Allergy/AdvReac Type Severity Reaction Status Date / Time No Known Allergies Allergy Verified 11/15/24 06:55 Vaccinations None Consultations None Procedures Performed Operation Date: 11/15/24 08:50 <No data on this case meets the specified critera Noncemented left total replacement Ordered Studies X-rays/ bone pathology Hospital Course (1) Status post left hip replacement: Total Time Total Time Spent Total Time Spent (In Minutes): 5 Discharge Plan Discharge Items Patient Disposition: Home - Home Health Services Reason For Visit: Left Hip Osteoarthritis Discharge Diagnosis: Left hip replacement noncemented status post left hip replacement for osteoarthritis left hip severe. Condition on Discharge: Good Activity: Per Instructions section Lifting: Wait until after follow-up appointment Bathing: Keep incision dry Exercise/Sports: Wait until after follow-up appointment Driving/Machine Use: No driving until cleared by Dr. Lara Weightbearing: Full weightbearing Non-emergency contact: Surgeon Call non-emergency contact if: you have any medication questions, your temperature is above 101, your wound has increased redness, your wound has increased drainage and your wound pain has increased Follow-up/Referrals: Yoel Duran PA-C [Physician Cardiac Sonographer] - 11/22/24 1:30 pm Chidi Boyer MD [Primary Care Provider] - Diet: Heart Healthy Add Attending Provider Instructions: New Medicine: * You will likely be taking one or more of these medicines: 1. Percocet - Take, as directed, when you need it, every four to six hours to control your pain. 2. Iron Sulfate - Take 1x each day for the month after surgery to help you replace the blood lost during surgery. 3. Eliquis - Thins your blood to lessen the chance of forming a blood clot. * The most common side effects of pain medicine and iron are nausea and con stipation. If nausea or constipation is too much of a problem or if you have any questions about your new medicines or doses, call [facility] at . We will try to help you manage these issues. "VERY IMPORTANT TO READ AND REVIEW" Blood Clots and Blood Thinning Medicine: * You are given Eliquis during the immediate post-operative period to lessen the risk of blood clots forming in your legs and/or lungs. It is usually given for 4 weeks after surgery. * The prescription is for 2.5 mg tablets. At discharge, you should understand your dose and take it at the same time every day. Pain: * The immediate post-operative period after hip replacement surgery is often quite painful. * You are given a prescription for pain medicine. You should take it, as directed, when you need it, especially before physical therapy and before going to bed. Pain that interferes with sleep is very common and can last several months. * You will likely need pain medicine for the first two to four weeks. It will not stop all of the pain. The pain will lessen and as you feel better, you may change to milder pain medicine such as Tylenol. * The most common side effects of pain medicine are nausea and constipation, so don't take more than you need. Physical Therapy: * Follow the "Hip Precautions Instructions." * In some cases, the older adult social work specialist at the hospital will arrange to have a therapist come to your house for the first couple of weeks to help you learn these skills. * You need to practice on your own or with the help of a family member as needed. * When you learn these skills, most of the therapy can be done on your own. Home Exercise: * You were shown a series of exercises in the hospital. Do these exercises three to four times each day including the exercises you were shown in physical therapy. Walking: * Get up and walk several times each day. For the first four weeks, try not to stand or walk for more than one hour at a time. If you do stand or walk for more than one hour, you will not hurt anything, but your leg will likely swell. * As you feel comfortable, you may change from the walker or crutches to a cane and then to independent walking. SELF CARE INSTRUCTIONS AFTER TOTAL HIP REPLACEMENT Until the incision and soft tissues around your hip have healed, there is a possibility that the hip prosthesis could dislocate. A. Observe the following precautions to prevent dislocation: 1. Don't bend your hip greater than 90 degrees. 2. Avoid crossing your legs or ankles while standing or lying. 3. Sit with your feet placed 6 inches apart. 4. When sitting, keep your knees below your hips. Sit on a firm surface, avoid deep, soft chairs and couches. Use an elevated toilet seat in the bathroom. 5. Don't bend over at the waist. Use a long handled shoehorn and a sock aid to help you put on your shoes and socks. A floral designer salesperson can help you metal pickling equipment operator objects that are too high or too low to reach. 6. Keep car riding to a minimum for at least one month after surgery. B. Your balance may be shaky for a while. Use crutches or a walker until directed by your doctor. C. Use hand rails when walking on stairs. D. Wear low heeled shoes with non-slip soles. E. Be sure that your floors are free of things that could trip you - throw rugs, electrical cords, small objects. Avoid wet and waxed floors, especially with crutches and canes. F. Try to walk several times a day with rest periods between. G. Continue with all the exercises taught to you in the hospital. Again, make walking a part of your daily routine. VERY IMPORTANT TO READ AND REVIEW A. Take Eliquis (blood thinning medication) as directed by your doctor. B. There are a few signs you need to watch for after you are home. If you notice any of the followin. Increased severe hip pain. Some pain is expected especially when you exercise. 2. Increased swelling in your leg or knee; pain or swelling of the calf muscle in either lower leg. 3. Any fluid drainage from the incision. 4. Shortness of breath or chest pain. TEDs/Elastic Stockings: * The white elastic stockings help limit swelling and prevent blood clots from forming in your legs. The more you wear them, the more they work. * Wear them for six weeks. Prevention of Infection: * Take antibiotics one hour before any dental cleaning, dental work, urological procedure, gastrointestinal procedure or any invasive surgery in order to prevent your new joint from getting infected. * You may get the antibiotics from the doctor performing the procedure or we will call in a prescription to the pharmacy of your choice. Call the office for a prescription at least 2 days prior to your appointment. Diet: * You may return to previous diet. Things to Watch For: * Drainage from the incision site that occurs more than one week after your surgery. * Severely increased leg pain or swelling. * Increased redness at the incision site. * Fever above 101 degrees Fahrenheit. * Unusual chest pain or shortness of breath. * Unusual pain or burning with urination. MEDICATIONS: * Please take your prescriptions as instructed at your pre-op appointment and/or see medication discharge instructions listed above. * If concerns develop, call your physician's office at . SPECIAL CARE INSTRUCTIONS: * Ice/Elevate as instructed. * Keep dressing clean, dry, intact. * Your surgical extremity may be discolored due to prepping agents used on the skin. A bluish-green tint is a normal variant and should not cause alarm. Call your doctor at [phone] if: * Temperature above 101 degrees * Pain not relieved by pain medicine ordered * There is increased drainage or redness from any incision * You have any unanswered questions, problems or concerns. FOLLOW UP VISIT: * If not already scheduled, please call the office at to schedule a follow-up appointment. Pending Studies at Discharge: Yes Studies:: bone pathology Stand-Alone Forms: [facility] [employer], Smoking Cessation Medications and DC Order Prescriptions: No Action ibuprofen 200 mg Tablet 200 mg PO Q6H PRN (Reason: Pain) Hold Instructions: Resume on 03/12/24. Discharge Orders: Discharge Order (Routine); Ordered 11/16/24 Ordered By: Sammy Lara Admission Data Admit Date/Time: 11/15/24 11:22 Attending Provider: Sammy Lara Admit Provider: Sammy Lara Primary Care Provider: Chidi Boyer Other Providers: [facility],[employer]
[2024-11-15] MEDS: fentaNYL citrate PF 100 MCG/2 ML VIAL IV PRN (11:20)
--- NOTE | 2024-11-15 11:27 | Operative Report ---
Post Operative Report Pre & Post Diagnosis Operation Date: 11/15/24 08:50 Pre-Op Diagnosis: Left Hip Osteoarthritis Post-Op Diagnosis: Left Hip Osteoarthritis I identified the patient and participated in the time-out.: Yes Procedure Operation Date: 11/15/24 08:50 Actual Procedures p Left Total Hip Arthroplasty, Uncemented(Left) - Sammy Lara MD Surgeon CONNOR Lara MD Supervisor [place]/Renee BARBOZA Estimated Blood Loss 150 Findings Consistent with Post-Op Diagnosis see operative report Specimens see operative report Drains none Complications none Disposition Accompanied Patient To Recovery: Yes Indications This 64 year old male presented to the office with complaints of persisting left hip pain. He had tried conservative treatment without improvement. He elected to proceed with surgical intervention after being educated about potential risks and outcomes. Preoperative imaging was obtained. Description of Procedure The patient was administered a spinal anesthetic and then taken to the operating room where he was given sedation. He was prepped and draped in the usual sterile fashion. Please see Dr. Lara's operative report for specifics of the procedure. I was present for the entire case from initial patient positioning through final wound closure. Assistance was provided in tissue retraction, hemostasis, trial implant placement, final implant placement, and final wound closure. The patient was taken to the recovery room in satisfactory condition. I attest to the content of the Intraoperative Record and any orders documented therein. Any exceptions are noted below.
--- NOTE | 2024-11-15 11:29 | XRay Report ---
XR pelvis 1-2V routine CLINICAL HISTORY: S/P L FERNANDO COMPARISON: 07/31/2024 FINDINGS: Interval left hip prosthesis shows no hardware complication. There is expected soft tissue gas laterally. Right hip prosthesis is stable. IMPRESSION: Unremarkable postoperative exam. ACT 112: Negative or not required by law. Electronically signed by: Eddie Brito M.D. 11/15/2024 11:28 AM
--- NOTE | 2024-11-15 12:07 | Anesthesiology Progress Note ---
Date of Service November 15, 2024 Anesthesia Post Procedure Vital Signs Vital Signs: Temp Pulse Resp BP Pulse Ox O2 Del Method 11/15/24 12:00 45 L 16 130/72 98 Room Air 11/15/24 11:50 36.4 C L 53 L 17 123/67 98 Room Air 11/15/24 11:40 64 12 121/81 97 Room Air 11/15/24 11:30 58 L 13 128/72 94 Room Air 11/15/24 11:20 46 L 12 121/65 98 Room Air 11/15/24 11:11 61 14 120/69 100 Room Air 11/15/24 06:57 37.1 C 73 20 155/86 H 96 Room Air Pain Intensity Right Shoulder: Pain Intensity: 4 Transfer of Care Handoff Completed per policy Notes Mental Status: alert / awake / arousable and participated in evaluation Patient Amnestic to Procedure: Yes Nausea / Vomiting: adequately controlled Pain: adequately controlled Airway Patency, RR, SpO2: stable & adequate BP & HR: stable & adequate Hydration State: stable & adequate Neuraxial Anesthesia: was administered and sensory block is resolving Anesthetic Complications: no major complications apparent and Pt Satisfied with anesthetic care
--- NOTE | 2024-11-15 12:30 | Orthopedic Progress Note ---
Date of Service November 15, 2024 Orthopedic Progress Note Postop check patient seen in the recovery room. He denies any chest pain shortness of breath fever chills nausea vomiting or headache. Vital signs are stable he is afebrile. Neurovascular check of spinal is wearing off. No has trace quad function trace dorsi flexion of his ankle plantarflexion of his ankle inversion eversion of his ankle and flexion extension of his toes. Postop x-rays look excellent. Assessment doing well continue care pathway get on his feet mobilize DILAN. Minimize risk for DVT PE and bedsore. Can be weightbearing as tolerated on his right leg and left leg. Initiate anticoagulation tomorrow. Will require close supervision of wound and Prevena based on high BMI and soft tissue potential for infection.
[2024-11-15] MEDS ORDERED: oxyCODONE HCL IR 5 MG TAB (IMMEDIATE RELEASE) PO PRN (13:00)
[2024-11-15] MEDS ORDERED: ALUMINUM/MAGNESIUM SUSP 30 ML UDC PO PRN (13:00)
[2024-11-15] MEDS ORDERED: TAMSULOSIN HCL 0.4 MG CAP PO PRN (13:00)
[2024-11-15] MEDS ORDERED: VANCOMYCIN CONSULT ACTIVE PRN (13:00)
[2024-11-15] MEDS ORDERED: MAGNESIUM HYDROXIDE SUSP 30 ML UDC PO PRN (13:00)
[2024-11-15] MEDS ORDERED: diphenhydrAMINE 50 MG/ML VIAL IV PRN (13:00)
[2024-11-15] MEDS ORDERED: METOCLOPRAMIDE HCL INJ 5 MG/ML 2 ML VIAL IV PRN (13:00)
[2024-11-15] MEDS ORDERED: HYDROmorphone INJ 0.5 MG/0.5 ML SYR IV PRN (13:00)
[2024-11-15] MEDS ORDERED: NALOXONE HCL 0.4 MG/1 ML VIAL/CARP IV PRN (13:00)
[2024-11-15] MEDS ORDERED: VANCOMYCIN HCL 2,000 MG in SODIUM CHLORIDE 0.9% 500 ML IV ONE (13:00)
[2024-11-15] MEDS ORDERED: bisacodyL 10 MG SUPP PR PRN (13:00)
[2024-11-15] MEDS: VANCOMYCIN HCL 2,000 MG in SODIUM CHLORIDE 0.9% 500 ML IV ONE (13:50)
[2024-11-15] MEDS: ACETAMINOPHEN 500 MG TAB PO SCH (13:52)
[2024-11-15] MEDS: KETOROLAC TROMETHAMINE 15 MG/ML VIAL IV SCH (13:52)
[2024-11-15] MEDS ORDERED: SODIUM CHLORIDE 0.65% NA SOLN 45 ML (OCEAN) PRN (15:20)
[2024-11-15] MEDS: ASCORBIC ACID 500 MG TAB PO SCH (16:43)
[2024-11-15] MEDS: FERROUS GLUCONATE 324 MG TAB PO SCH (16:44)
[2024-11-15] MEDS: ceFAZolin 2000MG 2,000 MG/15 ML SYR IV SCH (17:37)
[2024-11-15] MEDS: PROPARACAINE 0.5% 225 DROPS/15 ML BTL OP SCH (18:07)
[2024-11-15] MEDS: ATENOLOL 25 MG TABLET PO SCH (18:08)
[2024-11-15] MEDS: DOCUSATE SODIUM 100 MG CAP PO SCH (21:12)
[2024-11-15] MEDS: SENNA 8.6 MG TAB PO SCH (21:12)
--- NOTE | 2024-11-16 06:55 | Orthopedic Progress Note ---
Date of Service November 16, 2024 Assessment & Plan Admission and Anticipated Discharge Date Admission Date: November 15, 2024 Orthopedic Progress Note Postop day #1. Sitting up at the side of the bed. He is able to eat drink void. He is ambulating in the room with his walker. He weightbearing as tolerated on his left leg. Vital signs are stable he is afebrile. Blood pressure is controlled. Will discontinue the rest of the atenolol. Some of it was probably using a cuff that was too small to measure his blood pressure. Neurovascular check femoral sciatic nerve is intact. Wound dressing clean dry and intact. A.m. labs pending. His eye feels better. Assessment doing well case management to finalize discharge planning today. Medical perspective should be able to be discharged. Start Eliquis today. [place] to be placed by PA today. Follow-up in 1 week for wound check. Will be discharged on some oral antibiotics as well as his Eliquis and pain medication. High risk based on his BMI and skin conditions.
[2024-11-16 07:33] LABS: Basophils # (auto) 0.04 K/uL (0.00-0.20); Basophils % (auto) 0.4 %; Eosinophils # (auto) 0.19 K/uL (0.00-0.50); Eosinophils % (auto) 1.8 %; Hematocrit (blood only) 42.8 % (42.0-52.0); Hemoglobin 14.3 g/dl (14.0-18.0); Immature Granulocytes # (auto) 0.05 K/uL (0.01-0.20); Immature Granulocytes % (auto) 0.5 %; Lymphocytes % (auto) 5.7 %; Mean Corpuscular Hemoglobin 29.7 pg (25.0-34.0); Mean Corpuscular Hgb Conc 33.4 g/dL (32.0-36.0); Mean Platelet Volume 10.8 fL (9.4-12.4); Monocytes # (auto) 0.88 K/uL (0.11-0.59); Monocytes % (auto) 8.4 %; Neutrophils # (auto) 8.76 K/uL (1.40-6.50); Neutrophils % (auto) 83.2 %; Platelet Count 205 K/uL (130-400); RDW Coefficient of Variation 14.1 % (11.5-14.5); RDW Standard Deviation 45.6 fL (36.4-46.3); Red Blood Count 4.81 M/uL (4.70-6.10); White Blood Count 10.52 K/ul (4.8-10.8)
[2024-11-16 07:39] LABS: BUN Creatinine Ratio 23.6 (10-20); Calcium 8.5 mg/dl (8.6-10.3); Creatinine Clr Calc Pharmacy 155.1 ml/min; Potassium 4.4 mmol/L (3.5-5.1)
[2024-11-16] MEDS: MULTIVITAMIN TAB PO SCH (08:48)
[2024-11-16] MEDS: APIXABAN 2.5 MG TAB PO SCH (08:49)
[2024-11-16] MEDS: dexAMETHasone 10 MG in SYRINGE 0 ML IV SCH (08:56)
--- NOTE | 2024-11-16 09:31 | Orthopedic Progress Note ---
Date of Service November 16, 2024 Assessment & Plan (1) Status post left hip replacement: Plan: The patient was educated regarding today's findings. A Prevena wound VAC was placed over his left hip incision. An excellent seal was obtained. It was then covered with Ioban adhesive. This will remain in place until I see him in the office next Wednesday. Keep the area dry. He will participate in rehab this morning with anticipation of transfer to [facility] rehab. Will start his Eliquis this morning. Continue it 2 times a day x 4 weeks for DVT prophylaxis. He is aware. He will also be placed on prednisone 20 mg daily to suppress drainage. He had a significant issue with drainage and superficial wound infection after his previous right total hip. The patient will also be placed on Ceftin 300 mg twice daily x 14 days as a prophylaxis against infection. The patient is aware. Continue with the wedge pillow when sleeping. Call with any other concerns. Admission and Anticipated Discharge Date Admission Date: November 15, 2024 Subjective This 64-year-old male is seen today in his room. He is 1 day status post left total hip arthroplasty. He states he did not sleep well. He thinks the bed is too small for him. He spent most of the evening upright back pain. He states there is some discomfort in the hip but not severe. He has been able to urinate. He denies any chest pain, shortness of breath, nausea, vomiting, abdominal pain, fevers, or sweats. He states the room was cold last night. He would like to go to [facility] for rehab. He did this after his other hip. No additional complaints. Review of Systems Review of Systems: Unchanged from yesterday. Physical Exam Physical Exam: General: Well-developed, well-nourished, middle-aged male, in no acute distress. Sitting up and finishing his breakfast. Alert and oriented. Conversive. Skin: Warm and dry with good turgor. No rashes. Postsurgical dressing is in place on the left hip. Upon removal, there is scant dried blood on the inner dressing. There is no active bleeding from the surgical incision. Kate are in place. Wound edges are well-approximated. No erythema. No ecchymosis or visible edema yet. Musculoskeletal: The patient is able to stand at bedside using his walker. There is an intact motor function of the left leg with associated discomfort. Intact motor function to the ankle for dorsiflexion and plantarflexion. Supple motion of the hip for passive rotation as well as flexion. Neurologic: Gross sensation is intact across the left leg by soft touch. Peripheral pulses are 2+. Results & Data Vital Signs (Past 12 Hours) Vital Signs Temp Pulse Resp BP BP Pulse Ox O2 Del Method 11/16/24 07:09 36.8 C 72 18 136/79 99 Room Air 11/16/24 02:30 36.9 C 64 16 130/71 95 Room Air 11/15/24 22:58 36.9 C 69 16 128/76 98 Room Air Laboratory Results CBC obtained today shows a white count of 10.52. H&H of 14.3 and 42.8. Platelets are normal at 205,000. Normal electrolytes. Normal BUN and creatinine at 17 and 0.72. Glucose this morning is 133.
--- NOTE | 2024-11-16 17:10 | Orthopedic Progress Note ---
Date of Service November 16, 2024 Assessment & Plan Admission and Anticipated Discharge Date Admission Date: November 15, 2024 Orthopedic Progress Note Afternoon rounds. Patient awaiting for insurance authorization for rehabilitation hospital admission. Still decisions been made. He sitting up comfortably in a wheelchair eating his dinner. He does note some leg pain in and around the area of the incision and on and front and back of his leg. There is no numbness or tingling. Exam reveals no compartment issues compartments are soft. There is no pain with rotation of the leg or active flexion of the leg. Neurovascular check femoral sciatic nerve is normal extensor mechanism is intact. Wound dressing clean dry and intact. Calves nontender. Assessment doing about as well this could be expected based on the size and complexity of his overall medical condition. Needs to wait insurance determination. Needs to have backup plan in case he is not eligible for rehabilitation admission although it would be best for him medically based on his overall complexity and size. He also has other joints that are arthritic and needs significant mobilization training to be able to negotiate stairs. His fall risk would be high. Appropriate medications ordered. His eye is feeling better. Eyedrops were discontinued. Await final insurance determination follow-up tomorrow morning.
[2024-11-16] MEDS: CEFDINIR 300 MG CAP PO SCH (20:25)
--- NOTE | 2024-11-17 06:44 | Orthopedic Progress Note ---
Date of Service November 17, 2024 Assessment & Plan Admission and Anticipated Discharge Date Admission Date: November 15, 2024 Orthopedic Progress Note Postop day #2 status post left total hip replacement. Patient sitting up in the chair. His pain is well-managed. He denies any chest pain shortness of breath fever chills nausea vomiting or headache. Vital signs are stable he is afebrile. Neurovascular check femoral sciatic nerve is intact. Hip range of motion is supple and pain-free. There is no pain with compression through his femur. He only has pain with activation of muscle into the knee extension with some thigh pain consistent with postsurgical pain. Hip abduction hip adduction hip flexion all intact. Minimal discomfort. He does have knee arthritis and significant flexion contracture of the knee. Calves are nontender. Sensation foot baseline swelling in foot baseline. Wound VAC clean dry and intact. Assessment this point in time he is stable for discharge from acute care facility. Needs to be placed. He is not safe at home independently. He will need inpatient rehab or other type of a similar facility. He will follow-up with us in a week to remove the wound VAC. His high BMI and comorbidities have placed moderate increased risk for postop complications. He is on his DVT PE prophylaxis. He will be discharged on oral antibiotics for 2 to 3 weeks until we get his wound clean and dry completely. Follow-up on next Wednesday for a wound VAC change.
[2024-11-17 07:11] VITALS: RESP 16; O2SAT 98
[2024-11-17] MEDS: predniSONE 20 MG TAB PO SCH (07:56)
[2024-11-17 15:28] VITALS: BP 167/74; PULSE 60; TEMP 98.2
== END 2024-11-17 16:40 | DRG 470 ==
LOC: ASU 06:34 → 3E 11:22 → INTOOBSV 11:22